=== PATIENT | female | born 1985 | race Hispanic/Latino ===

== ENCOUNTER 2017-10-15 05:34 | Emergency (ER) | payer OTHER ==
[~2017-10-15] VITALS: Ht 162.6 cm; Wt 106.6 kg
[2017-10-15] MEDS ORDERED: PROZAC20 MG (06:17)
[2017-10-15] MEDS ORDERED: ALBUTEROL/IPRATROPIUM 3 ML NEB NEB ONE (06:30)
[2017-10-15] MEDS ORDERED: AMOXICILLIN250 MG PO (06:31)
[2017-10-15] MEDS ORDERED: SINGULAIR10 MG (06:31)
[2017-10-15] MEDS ORDERED: CLARITIN10 M2 (06:31)
[2017-10-15 06:53] VITALS: BP 130/60
== END 2017-10-15 06:53 | disposition home or self-care (01) ==
LOC: FSED 05:34
DX: R05 Cough (principal); R06.09 Other forms of dyspnea; J06.9 Acute upper respiratory infection, unspecified; J45.909 Unspecified asthma, uncomplicated
CPT/HCPCS: 71046; 85025; 99283